=== PATIENT | male | born 1950 | race African-American/Black ===

== ENCOUNTER → 2018-02-24 | Outpatient (CLI) | payer MEDICARE ==
[~2018-02-24] MED LIST: IOHEXOL-300 100 ML BOTTLE ONE
== END | disposition home or self-care (01) ==
LOC: CT 08:46
PROVIDERS: ATTEND Urology
DX: K76.0 Fatty (change of) liver, not elsewhere classified (principal); N40.0 Benign prostatic hyperplasia without lower urinary tract symptoms; M47.896 Other spondylosis, lumbar region; N13.30 Unspecified hydronephrosis; Z90.49 Acquired absence of other specified parts of digestive tract
CPT/HCPCS: 74178; Q9967